=== PATIENT | male | born 1975 | race Caucasian/White ===

== ENCOUNTER → 2016-09-23 | Outpatient (CLI) | payer OTHER ==
--- NOTE | 2016-09-23 22:21 | PCVCIMAG ---
APPROVED REPORT Exam: Stress Echocardiogram Indication: chest pain, hyperlipidemia Stress Nurse: Franchesca Hendrix RN Status: routine HR: 77 bpm Rhythm: NSR Procedure The patient underwent an Exercise Stress Test using the Dustin Protocol. Blood pressure, heart rate, and EKG were monitored. An Echocardiogram was performed by refurbish technician in four stages in quad fashion. At peak stress, four selected images were obtained and placed side by side with resting images for comparison. Stress Test Details Stress Test: Exercise stress testing was performed using a Dustin protocol. HR Resting HR: 77 bpmMax Heart Rate (APMHR): 181 bpm Target HR (85% APMHR): 153 bpm HR response to stress: Normal HR response to stress BP Resting BP: 100/70 mmHg Max BP: 152/78 mmHg ECG Resting ECG: Sinus Rhythm Stress ECG: Sinus Tachycardia Recovery ECG: Sinus Rhythm Clinical Reason for Termination: Maximal effort Exercise duration: 16 min sec Highest Stage Achieved: Stage 6: 5.5 mph at 20% grade. Exercise capacity: 20.30 METs Stress ECG Conclusion 1. SUBJECTIVELY NEGATIVE FOR ISCHEMIA 2. ELECTROCARDIOGRAPHICALLY NEGATIVE FOR ISCHEMIA Pre-Stress Echo The resting Echocardiogram showed normal left ventricular contractility with an estimated Ejection Fraction of about 55-60%. Normal wall motion in all segments on baseline images. Post-Stress Echo The stress Echocardiogram showed normal left ventricular contractility with an estimated Ejection Fraction of about 65-70%. Normal augmentation of wall motion in all segments on post stress images. Clinical No clinical or ECG evidence for ischemia. Conclusion Clinical Response: Non-ischemic Exercise Capacity: Superior Stress ECG Response: Non-ischemic Stress Echo Images: Non-ischemic 1. LOW RISK STUDY Other Information Study Quality: Good <Conclusion> 1. LOW RISK STUDY
== END | disposition home or self-care (01) ==
LOC: PCVCIMAG 14:35
PROVIDERS: ATTEND Internal Medicine
DX: I10 Essential (primary) hypertension (principal); E78.5 Hyperlipidemia, unspecified; R00.0 Tachycardia, unspecified
CPT/HCPCS: 93325; 93351